=== PATIENT | male | born 1950 | race Caucasian/White ===

== ENCOUNTER 2017-04-22 16:56 | Inpatient (IN) | payer OTHER ==
[~2017-04-22] VITALS: Ht 175.3 cm; Wt 95.0 kg
[~2017-04-22 16:56] MED LIST changes: -RIVA15TA PO
[2017-04-23 07:17] VITALS: BP 114/71
[2017-04-23] MEDS: BENAZEPRIL 10 MG TABLET PO SCH (09:00)
[2017-04-23] MEDS: ENOXAPARIN 100 MG/ML SQ SCH ×2 (09:00→20:24)
[2017-04-23] MEDS: AMLODIPINE 5 MG TABLET PO SCH (09:00)
[2017-04-23] MEDS: ASPIRIN 81 MG TABLET EC PO SCH (09:00)
[2017-04-23] MEDS: SODIUM CHLORIDE FLUSH 10ML SYR IVF SCH ×2 (09:00→20:24)
[2017-04-23 14:39] VITALS: BP 113/73
[2017-04-23 19:51] VITALS: BP 117/51
[2017-04-24 03:32] VITALS: BP 99/61
[2017-04-24 06:46] VITALS: BP 116/75
[2017-04-24] MEDS ORDERED: RIVAROXABAN 15 MG TABLET PO SCH ×2 (08:00)
[2017-04-24] MEDS: BENAZEPRIL 10 MG TABLET PO SCH (08:49)
[2017-04-24] MEDS: ASPIRIN 81 MG TABLET EC PO SCH (08:49)
[2017-04-24] MEDS: AMLODIPINE 5 MG TABLET PO SCH (08:49)
[2017-04-24] MEDS: SODIUM CHLORIDE FLUSH 10ML SYR IVF SCH (09:00)
[2017-04-24] MEDS ORDERED: RIVA15TA PO (11:10)
[2017-04-24 12:42] VITALS: BP 131/90
[2017-04-25 11:12] LABS: ASPARTATE AMINO TRANSFERASE 12 U/L (15-37); BLOOD UREA NITROGEN 16 mg/dL (7-18)
[2017-04-25 11:25] LABS: BLOOD UREA NITROGEN 20 mg/dL (7-18); IS PT STATUS REG ER OR PRE ER? NO
[2017-05-01 09:08] LABS: PROTEIN S FREE 134 % (57-157); PROTEIN S TOTAL 123 % (60-150)
== END 2017-04-24 16:14 | disposition home or self-care (01) | DRG 299 ==
LOC: ED 16:56 → 5SO 20:30
PROVIDERS: ADMIT Internal Medicine; ATTEND Internal Medicine
DX: I82.432 Acute embolism and thrombosis of left popliteal vein (principal); I26.99 Other pulmonary embolism without acute cor pulmonale; D68.69 Other thrombophilia; I10 Essential (primary) hypertension; R91.1 Solitary pulmonary nodule; Z80.1 Family history of malignant neoplasm of trachea, bronchus and lung; Z82.3 Family history of stroke; Z82.49 Family history of ischemic heart disease and other diseases of the circulatory system; Z83.3 Family history of diabetes mellitus; Z86.718 Personal history of other venous thrombosis and embolism; Z88.0 Allergy status to penicillin; Z88.1 Allergy status to other antibiotic agents
CPT/HCPCS: 36415; 80048; 80053; 81241; 82040; 83880; 84484; 85025; 85240; 85300; 85302; 85305; 85306; 85610; 85730; 86147; 93306; 93970; 99285; J1650

== ENCOUNTER → 2017-04-22 | Outpatient (CLI) | payer OTHER ==
[~2017-04-22] MED LIST: ALPH300C PO; AMLO1CAP5 PO; ASPI-496 PO; BILBERRY PO; CHLORELLA PO; CHOL200024 PO; CoQ10 PO; GINK60CA2 PO; LACT1CAP35 PO; LUTEIN PO; MULT-516 PO; RESV100C PO; RIVA15TA PO; TURMERIC PO
== END | disposition home or self-care (01) ==
LOC: CFH 10:47
PROVIDERS: ATTEND Family Medicine
DX: R91.1 Solitary pulmonary nodule (principal); I26.99 Other pulmonary embolism without acute cor pulmonale
CPT/HCPCS: 71260